=== PATIENT | male | born 1990 | race Caucasian/White ===

== ENCOUNTER 2020-01-12 22:18 | Emergency (ER) | payer SELFPAY ==
[2020-01-12] MEDS ORDERED: Ibuprofen 800 MG TAB ONE (23:02)
== END 2020-01-12 23:04 | disposition home or self-care (01) ==
LOC: NAV ERS 22:18
DX: M54.42 Lumbago with sciatica, left side (principal); F17.210 Nicotine dependence, cigarettes, uncomplicated
CPT/HCPCS: 99283